=== PATIENT | male | born 1970 | race Caucasian/White ===

== ENCOUNTER 2021-11-02 00:54 | Day surgery (SDC) | payer OTHER, SELFPAY ==
[2021-10-18 13:40] VITALS: BMI 25.4
--- NOTE | 2021-10-31 17:42 | P.HP_ITS ---
History of Present Illness History of Present Illness Consent: Risks, benefits, and alternatives have been discussed and questions answered. Patient agrees to proceed with procedure. Chief complaint: neoplasm screening, dysphagia,schatzki ring Narrative: Bk Marquis is a 51 year old male With chronic heartburn on omeprazole. EGD is being done to investigate and rule out Barretts esophagus. He is due for colon cancer screening as well. Review of Systems Review of Systems: All systems reviewed & are unremarkable except as noted in HPI and below PMFSH Past Medical History Medical History (Updated 10/31/21 @ 17:43 by Rakesh Myers MD) Hyperlipidemia Hypertension Surgical History Surgical History (Updated 10/18/21 @ 13:40 by YU Monae) H/O umbilical hernia repair Family History Family History (Updated 10/18/21 @ 13:41 by YU Monae) Other Breast cancer Heart disease Hypertension Social History Social History (Updated 10/18/21 @ 13:43 by YU Monae) Smoking status: Never smoker Alcohol intake: current Drinks per week: 20 Alcohol use details: Socially Substance use type: does not use Spiritual care concerns: No Meds Home Medications and Allergies Home Medications Medication Instructions Recorded Confirmed Type atorvastatin 40 mg tablet 40 mg PO DAILY 10/18/21 10/18/21 History benazepril 20 mg tablet 20 mg PO DAILY 10/18/21 10/18/21 History omeprazole magnesium 20 mg 20 mg PO DAILY 10/18/21 10/18/21 History tablet,delayed release (Prilosec OTC) sertraline 100 mg tablet 100 mg PO DAILY 10/18/21 10/18/21 History Allergies Allergy/AdvReac Type Severity Reaction Status Date / Time No Known Allergies Allergy Unknown Verified 10/18/21 13:37 Exam Const: General: alert Orientation/consciousness: patient oriented x3 Resp: Auscultation: clear to auscultation bilaterally Cardio: Rhythm: regular rhythm GI: GI Palp: Yes Soft to palpation and No Tenderness to palpation present (GI) Neuro: General: patient oriented x3 Assessment and Plan Assessment and plan (1) GERD (gastroesophageal reflux disease): Code(s): K21.9 - Gastro-esophageal reflux disease without esophagitis Status: Acute Assessment and Plan: EGD with possible biopsy or dilatation or cautery. (2) Colon cancer screening: Code(s): Z12.11 - Encounter for screening for malignant neoplasm of colon Status: Acute Assessment and Plan: Colonoscopy with possible biopsy or polypectomy or cautery or injection of s ubstances.
[2021-11-02 06:27] VITALS: BP 141/101; PULSE 62; RESP 18; TEMP 35.9; O2SAT 100
[2021-11-02] MEDS: LACTATED RINGERS 1,000 ML 150 ML IV CONT (06:35)
--- NOTE | 2021-11-02 07:17 | WPDANESEPPF ---
Anes - Initial Pre Proc Eval Procedure: Operation Date: 11/02/21 07:30 Proposed Procedures p Esophagogastroduodenoscopy & Screening Colonoscopy - Rakesh Myers MD Date/Time: 11/02/21 07:17 Surgeon: Rakesh Myers MD Pre Op Diagnosis: neoplasm screening, dysphagia,schatzki ring Patient Data Age: 51 Gender: M Height: 1.93 m Weight: 95 kg Last Vital Signs Temp 96.6 F L 11/02/21 06:27 Pulse 62 11/02/21 06:27 Resp 18 11/02/21 06:27 BP 141/101 H 11/02/21 06:27 Pulse Ox 100 11/02/21 06:27 O2 Del Method Room Air 11/02/21 06:27 Allergies Allergy/AdvReac Type Severity Reaction Status Date / Time No Known Allergies Allergy Unknown Verified 10/18/21 13:37 Home Medications Medication Instructions Recorded Confirmed Type atorvastatin 40 mg tablet 40 mg PO DAILY 10/18/21 10/18/21 History benazepril 20 mg tablet 20 mg PO DAILY 10/18/21 10/18/21 History omeprazole magnesium 20 mg 20 mg PO DAILY 10/18/21 10/18/21 History tablet,delayed release (Prilosec OTC) sertraline 100 mg tablet 100 mg PO DAILY 10/18/21 10/18/21 History Patient hx anesthesia problems: none Family hx anesthesia problems: none Results Review: All pre-operative results and documents have been reviewed as part of the pre-operative evaluation. [facility] Past Medical History Medical History (Updated 10/31/21 @ 17:43 by Rakesh Myers MD) Hyperlipidemia Hypertension Surgical History Surgical History (Updated 10/18/21 @ 13:40 by YU Monae) H/O umbilical hernia repair Family History Family History (Updated 10/18/21 @ 13:41 by YU Monae) Other Breast cancer Heart disease Hypertension Social History Social History (Updated 10/18/21 @ 13:43 by YU Monae) Smoking status: Never smoker Alcohol intake: current Drinks per week: 20 Alcohol use details: Socially Substance use type: does not use Living arrangements: with family Spiritual care concerns: No Anes - Eval Final PreProcedure Day of Procedure 11/02/21 07:17 Patient weight: normal Heart: regular rate and rhythm Lungs: clear to auscultation Airway: Mallampati scale class II Neurological: alert and oriented Last oral intake: >/= 8 hours ASA classification: II Emergent: no Anesthetic plan: proceed Anesthesia type and monitoring: general GIVS and standard monitoring Results Review: All pre-operative results and documents have been reviewed as part of the pre-operative evaluation. Informed Consent: The patient's anesthetic plan and its attendant risks and benefits were discussed with the patient/family/POA. Questions were solicited and answers provided to the satisfaction of the patient/family/POA.
[2021-11-02] MEDS: SIMETHICONE ORAL SUSPENSION 20 MG/0.3 ML 30 ML BOTTLE 0.6 ML IRRIGATION (07:51)
--- NOTE | 2021-11-02 07:56 | SUR.OPER ---
EGD START: 734; END: 739. COLONOSCOPY START: 745; END: 075.
[2021-11-02 08:03] VITALS: BP 102/67; PULSE 45; RESP 20; O2SAT 98
[2021-11-02 08:13] VITALS: BP 107/72; PULSE 46; RESP 16; O2SAT 98
[2021-11-02 08:23] VITALS: BP 130/84; PULSE 46; RESP 18; O2SAT 98
== END 2021-11-02 08:32 | disposition home or self-care (01) ==
PROVIDERS: PCP Physician Assistant; Visit Provider Internal Medicine Gastroenterology
PROC: 0DJ08ZZ Inspection of Upper Intestinal Tract, Via Natural or Artificial Opening Endoscopic (ICD-10-PCS; CPT 43235; principal; 2021-11-02 07:30)
DX: Z12.11 Encounter for screening for malignant neoplasm of colon (principal); K21.9 Gastro-esophageal reflux disease without esophagitis; K22.2 Esophageal obstruction; K21.00 Gastro-esophageal reflux disease with esophagitis, without bleeding; I10 Essential (primary) hypertension; E78.5 Hyperlipidemia, unspecified
CPT/HCPCS: 45378; 43239; 43249; 88305; C1726; J2704; J7120

== ENCOUNTER 2021-12-08 00:53 | Day surgery (SDC) | payer OTHER, SELFPAY ==
[2021-12-04 13:51] VITALS: BMI 24.9
--- NOTE | 2021-12-04 14:12 | SUR.PREOP ---
Report to the Outpatient Waiting Room, entrance under the green pavilion located off [facility], at time 0600 on date 12/08/21. Planned Procedure Time: 0730. Time changes happen often and if your time is changed the preop area will call you the afternoon before. - You and your visitor will be asked to self-screen and do not enter if you have any COVID symptoms. - We encourage only one visitor and NO visitors under age 16 are allowed at this time. Your visitor will receive communication by the phone number that is given day of service. - The patient visitor is requested to social distance or may leave the building when not with patient due to restrictions. Patients may have clear liquids (water, carbonated beverages, clear teas, apple juice) until 3 hours prior to surgery with a maximum of 20 ounces- 0430. - No food from midnight until time of surgery - Infants may have breast milk until 4 hours before surgery, infant formula 6 hours prior to surgery. - Children will be allowed to drink immediately following surgery. If applicable, please bring a bottle or sippy cup to assist with drinking. Juice, water, soda, and popsicles are readily available. For infants on formula, please bring formula the day of surgery. Pacifiers are allowed. Take the following medications with a SIP of water the morning of surgery: Sertraline Medications to discontinue per physician NONE Date to take last dose NONE Please no make-up, nail albanian, hairspray, perfume, deodorant, or body powder the day of surgery. No jewelry (including any body piercings) or valuables the day of surgery, leave them at home. Please take a shower or bath the night before, or the morning of, surgery with an antibacterial soap- Hibiclens. Wear comfortable, loose fitting clothing. Children are encouraged to wear pajamas. - Jewelry must be removed prior to entering the operating room. Rings and piercings that are not removed may be cut off. - The hospital will not accept responsibility for valuables. - Please leave all valuables, including medications, at home the day of surgery. If you are going home after surgery, a licensed bulk driver must drive you home. - NO public transportation without another adult. - We recommend that an adult stay with you for 24 hours following discharge. - We also recommend that you do not drive, make important decision, drink alcoholic beverages, or take any drugs that were not prescribed by your health care provider for at least 24 hours after your discharge time. For Pediatric surgeries, we recommend two adults accompany the child home. Follow any additional instructions given to you from your surgeon. If you or anyone in your household have experienced Covid symptoms in the past week, please notify your surgeon or the nurse liaison at the phone number below for possible testing. Telephone instructions given to patient-Bk and asked if any additional questions and then verbalized understanding. Patient advised to call surgeon office or pre surgery nurse liaison [phone] if any additional questions.
[2021-12-08] VITALS (8 sets, daily range): BP systolic 118–171; BP diastolic 74–105; PULSE 40–54; RESP 14–16; TEMP 36.1; O2SAT 97–100
[2021-12-08] MEDS: ACETAMINOPHEN 500 MG TABLET 1000 MG PO (06:04)
[2021-12-08] MEDS: LACTATED RINGERS 1,000 ML 30 ML IV CONT ×2 (06:36→08:35)
[2021-12-08] MEDS: KETOROLAC 15 MG/ML VIAL (*BKC) IV PUSH (06:36)
--- NOTE | 2021-12-08 06:39 | WPDANESEPPF ---
Anes - Initial Pre Proc Eval Procedure: Operation Date: 12/08/21 07:30 Proposed Procedures p Left Open Inguinal Hernia Repair with Mesh - Didier Aguiar MD Date/Time: 12/08/21 06:39 Surgeon: Didier Aguiar MD Pre Op Diagnosis: left inguinal hernia Patient Data Age: 51 Gender: M Height: 1.96 m Weight: 95.5 kg Last Vital Signs Temp 36.1 C L 12/08/21 06:32 Pulse 54 L 12/08/21 06:32 Resp 16 12/08/21 06:32 BP 171/105 H 12/08/21 06:32 Pulse Ox 100 12/08/21 06:32 O2 Del Method Room Air 12/08/21 06:32 Allergies Allergy/AdvReac Type Severity Reaction Status Date / Time No Known Allergies Allergy Unknown Verified 12/08/21 06:01 Home Medications Medication Instructions Recorded Confirmed Type atorvastatin 40 mg tablet 40 mg PO DAILY 10/18/21 12/08/21 History benazepril 20 mg tablet 20 mg PO DAILY 10/18/21 12/04/21 History omeprazole magnesium 20 mg 20 mg PO DAILY 10/18/21 12/04/21 History tablet,delayed release (Prilosec OTC) sertraline 100 mg tablet 100 mg PO DAILY 10/18/21 12/04/21 History Patient hx anesthesia problems: none Family hx anesthesia problems: none Results Review: All pre-operative results and documents have been reviewed as part of the pre-operative evaluation. [facility] Past Medical History Medical History Hyperlipidemia Hypertension Surgical History Surgical History (Updated 12/08/21 @ 06:40 by Mono Gomez MD) H/O colonoscopy H/O umbilical hernia repair History of esophagogastroduodenoscopy (EGD) Family History Family History Other Breast cancer Heart disease Hypertension Social History Social History Smoking status: Never smoker Alcohol intake: current Drinks per week: 12 Alcohol use details: Socially Substance use type: does not use Living arrangements: with family Spiritual care concerns: No Anes - Eval Final PreProcedure Day of Procedure 12/08/21 06:39 Patient weight: normal Heart: regular rate and rhythm Lungs: clear to auscultation Airway: Mallampati scale class II Neurological: alert and oriented Last oral intake: >/= 8 hours ASA classification: II Emergent: no Anesthetic plan: proceed Anesthesia type and monitoring: general GIVS and standard monitoring Results Review: All pre-operative results and documents have been reviewed as part of the pre-operative evaluation. Informed Consent: The patient's anesthetic plan and its attendant risks and benefits were discussed with the patient/family/POA. Questions were solicited and answers provided to the satisfaction of the patient/family/POA.
--- NOTE | 2021-12-08 07:03 | PM.SD2 ---
Same Day Admit/Disch: HPI History of Present Illness Chief complaint: left inguinal hernia Narrative: Bk Marquis is a 51 year old male Was noticed a bulge in the left inguinal region for over a year. He is a very active man and in the last 2-3 months this has become bothersome for him when he is active. He was seen in the office and found to have a reducible left inguinal hernia. He is taken to surgery now for left inguinal hernia repair. [facility] Past Medical History Medical History Hyperlipidemia Hypertension Surgical History Surgical History (Updated 12/08/21 @ 06:40 by Mono Gomez MD) H/O colonoscopy H/O umbilical hernia repair History of esophagogastroduodenoscopy (EGD) Family History Family History Other Breast cancer Heart disease Hypertension Social History Social History Smoking status: Never smoker Alcohol intake: current Drinks per week: 12 Alcohol use details: Socially Substance use type: does not use Living arrangements: with family Spiritual care concerns: No Same Day Admit/Disch: Med Pre-admit Medications Home Medications Medication Instructions Recorded Confirmed Type atorvastatin 40 mg tablet 40 mg PO DAILY 10/18/21 12/08/21 History benazepril 20 mg tablet 20 mg PO DAILY 10/18/21 12/04/21 History omeprazole magnesium 20 mg 20 mg PO DAILY 10/18/21 12/04/21 History tablet,delayed release (Prilosec OTC) sertraline 100 mg tablet 100 mg PO DAILY 10/18/21 12/04/21 History hydrocodone 5 mg-acetaminophen 325 1 - 2 tablet PO Q6H PRN pain #7 12/08/21 Rx mg tablet tabs ketorolac 10 mg tablet 10 mg PO Q6H 4 days #16 tabs 12/08/21 Rx Exam Const: General: comfortable, no acute distress, alert and awake HENMT: Head: normocephalic and atraumatic Mouth: Yes Normal oral and palatal mucosa present Eyes: Conjunctivae: conjunctivae normal Pupils: Equal, round and reactive pupils present EOM: EOMs intact bilaterally Neck: Neck: normal visual inspection, no lymphadenopathy and nontender Resp: Effort & Inspection: normal respiratory effort Auscultation: clear to auscultation bilaterally Cardio: Rate: regular rate Rhythm: regular rhythm Heart sounds: no gallops, no murmurs and no rubs GI: Inspection: non-distended GI Palp: Yes Soft to palpation, No Tenderness to palpation present (GI), No Hepatomegaly present and No Splenomegaly present : Male General Exam: Yes hernia ( Reducible left inguinal hernia) Penis: Yes normal penis Scrotum: scrotum normal Testes: Testes normal Skin: Lesions: no lesions Rashes: no rashes Neuro: General: no focal motor deficits and CN's II-XI intact bilaterally Cranial nerves: Yes Equal, round and reactive pupils present, Yes Bilaterally intact EOM present, Yes facial symmetry and Yes Midline tongue present Speech: normal speech Motor exam (neuro): 5/5 motor strength present throughout and Motor abnormalities not present Extrem: General: no clubbing, cyanosis or edema and edema Psych: Affect: normal affect Thought process: Normal thought process present Insight: Good insight present (Psych) DS: Summary Time Spent with Patient Time attestation: Total time spent providing and/or coordinating discharge services: DS: Admitting Diagnosis Discharge Date 12/08/2021 Admitting Diagnosis left inguinal hernia- plan to proceed with repair under anesthesia as an outpatient. Procedure the risks the benefits, the use of mesh, the time off work and general time of recovery have all been discussed. All questions were answered. He understands and agrees to go ahead. DS: Discharge Diagnosis Discharge Diagnosis (1) Inguinal hernia without obstruction or gangrene: Code(s): K40.90 - Unilateral inguinal hernia, without obstruction or gangrene, not specified as r
--- NOTE | 2021-12-08 07:14 | WPDHPUPDATE1 ---
History and Physical Update Update Date/Time: 12/08/21 07:14 History and Physical has been reviewed, including an updated exam of the patient. There are NO changes in the patient's condition. Risks, benefits, and alternatives have been discussed and questions answered. Patient agrees to proceed with procedure.
[2021-12-08] MEDS: ceFAZolin 2 GM/D5W 50 ML 2 GM/50 ML BAG IVPB (07:24)
[2021-12-08] MEDS: BUPIVACAINE/EPINEPHRINE 0.25% 50 ML VIAL 30 ML INFILTRATE (08:15)
--- NOTE | 2021-12-08 08:33 | P.OP_ITS ---
Procedure Note - Detailed Date of Procedure 12/08/21 Pre-op Diagnosis left inguinal hernia Post-op Diagnosis Same Procedure Performed Left inguinal hernia repair with extra-large PerFix Light plug and patch Surgeon Didier Aguiar MD [employer] Anesthesia General (G IV S), Local (0.25% Marcaine with epinephrine) and Other (Xaracoll) Indications Patient has noticed a bulge in the left groin. Within the last couple of months this is painful with more vigorous activity. He was found on exam to have a left inguinal hernia. He is taken to surgery now for repair. Findings Patient had a large direct inguinal hernia Description of Procedure Patient was taken to surgery and anesthesia was introduced. The left groin and genitalia were prepped and draped. The proposed incision was marked on the skin. Local anesthetic was infiltrated into the skin and the deeper subcutaneous tissues. Incision was made deepened through the subcutaneous. Crossing veins were cauterized and divided. We dissected down to the external oblique aponeurosis. The aponeurosis was exposed as was the external ring. I infiltrated additional local deep to the aponeurosis in the area of the spermatic cord and inguinal canal contents. The aponeurosis was then opened laterally and extended medially through the external ring. Care was taken to avoid injury to the ilioinguinal nerve which was left attached to the cord and unharmed through the surgery. I freed the leaves of the aponeurosis from the inguinal canal contents. I then mobilized the cord medially on a Eb drain. I mobilized the cord back to the internal ring as well. The hernia was fairly easily found. It was dissected free from the spermatic cord and dissected circumferentially around its base so that it was completely free. I then scored through the transversalis fascia just above the neck of the hernia circumferentially. The sac was dunked into the retroperitoneum. An extra-large PerFix Light plug was placed in the defect. I sutured the edges of the plug to the transversalis fascia with interrupted 3-0 Vicryl suture. I then partially closed the defect with interrupted 3-0 Vicryl suture. The patch was cut to the appropriate size placed over the inguinal canal floor. The lateral leaves were passed beyond the cord. I then placed the 1st piece of Xaracoll over the patch. I laid the patch over the Xaracoll. The external oblique aponeurosis was then closed with interrupted 3-0 Vicryl suture. A 2nd piece of Xaracoll was placed over the aponeurosis. Blaise's fascia was closed with interrupted 3-0 Vicryl suture. The last pieces Xaracoll was placed in the subcutaneous. The skin was loosely approximated with subcuticular interrupted 4-0 Vicryl suture. The skin was finally closed with a running 4-0 Monocryl skin suture. The wound was dressed with Exofin surgical adhesive. Patient was awakened and taken to outpatient surgery recovery in good condition. Sponge and needle counts were correct x2. Implants Extra large PerFix Light plug and patch, Xaracoll Estimated Blood Loss -5 Drains No Packing No Pathology None sent Complications No immediate complications Condition Stable Disposition Same day [facility] Billing Surgery - Charge Forward: Surgery Billing (Left inguinal hernia repair)
--- NOTE | 2021-12-08 10:41 | SUR.PHASEII ---
10[address] DR PENN AWARE OF HR 36-42 & BP 159/101- NO ORDERS TO TREAT AT THIS TIME.
== END 2021-12-08 11:08 | disposition home or self-care (01) ==
PROVIDERS: PCP Physician Assistant; Visit Provider Surgery
PROC: (CPT 49505; principal; 2021-12-08 07:30)
DX: K40.90 Unilateral inguinal hernia, without obstruction or gangrene, not specified as recurrent (principal); I10 Essential (primary) hypertension; E78.5 Hyperlipidemia, unspecified
CPT/HCPCS: 49505; A9270; C1781; J0690; J1885; J2250; J2704; J3010; J7120